=== PATIENT | male | born 1985 | race African-American/Black ===

== ENCOUNTER 2019-05-05 16:06 | Emergency (ER) | payer OTHER ==
[2019-05-05 16:17] VITALS: BP 142/85; PULSE 93; TEMP 97; BMI 34.8
--- NOTE | 2019-05-05 16:28 | PDOC ---
Rapid Medical Evaluation Time Seen by Provider: 05/05/19 16:14 Medical Evaluation: Allergies Allergy/AdvReac Type Severity Reaction Status Date / Time No Known Allergies Allergy Verified 05/05/19 16:14 05/05/19 16:15 I have performed a brief in-person evaluation of this patient. The patient presents with a chief complaint of: L middle finger pain after biting nail too low Pertinent physical exam findings:no paronychia I have ordered the following:nothing The patient will proceed to the ED for further evaluation Discharge Disposition - Diagnosis Pain around nail - Referrals - Patient Instructions - Post Discharge Activity
--- NOTE | 2019-05-05 17:08 | PDOC ---
History of Present Illness - General Chief Complaint: Injury Stated Complaint: Pain Time Seen by Provider: 05/05/19 16:14 History Source: Patient Exam Limitations: No Limitations - History of Present Illness Initial Comments: 05/05/19 17:02 Patient is a 33-year-old male with no past medical history who presents to the ED with complaint of right middle finger swelling and pain. He states that started about 6 days ago. He was seen at [facility] where he was given a topical cream and advised to take Motrin. He was not started on antibiotics and he did not have an I&D. He does admit to biting his fingernails. He states that the finger is very tender to touch but has not been draining any pus. He denies any allergies to medications. Past History - Past Medical History Allergies/Adverse Reactions: Allergies Allergy/AdvReac Type Severity Reaction Status Date / Time No Known Allergies Allergy Verified 05/05/19 16:14 Home Medications: Ambulatory Orders Sulfamethoxazole/Trimethoprim [Bactrim Ds -] 1 tab PO BID #14 tablet 05/05/19 COPD: No - Immunization History Immunization Up to Date: Yes - Psycho Social/Smoking Cessation Hx Smoking History: Current every day smoker Have you smoked in the past 12 months: Yes Number of Cigarettes Smoked Daily: 0 Information on smoking cessation initiated: No Hx Alcohol Use: No Drug/Substance Use Hx: Yes (MARIJUANA) Substance Use Type: Marijuana Review of Systems - Review of Systems Comments:: 05/05/19 17:03 - Review of Systems Able to Perform ROS?: Yes Constitutional: No: Fever, Chills, Loss of Appetite, Night Sweats, Weakness Respiratory: No: Cough, Shortness of Breath, Wheezing, Sputum Production Cardiac (ROS): No: Chest Pain, Chest Tightness, Palpitations, Irregular Heart Beat, Edema ABD/GI: No: Nausea, Vomiting, Abdominal Pain, Diarrhea Musculoskeletal: No: Muscle Pain, Back Pain, Joint Pain, Muscle Weakness, Neck Pain; R middle finger swelling and pain Integumentary: No: Lesions, Rash Neurological: No: Headache, Numbness, Tingling, Weakness, Speech Difficulties *Physical Exam - Vital Signs Last Vital Signs Temp Pulse Resp BP Pulse Ox 97.0 F L 93 H 18 142/85 100 05/05/19 16:15 05/05/19 16:15 05/05/19 16:15 05/05/19 16:15 05/05/19 16:15 - Physical Exam 05/05/19 17:04 - Physical Exam General Appearance: Nourished, Appropriately Dressed, No Distress Neck: Supple, No Lymphadenopathy (R), No Lymphadenopathy (L), No Rigidity, No Decreased range of motion Respiratory/Chest: Lungs Clear, Normal Breath Sounds. No Respiratory Distress, No Accessory Muscle Use Cardiovascular: Regular Rhythm, Regular Rate, S1, S2 Musculoskeletal: Normal Inspection. No Decreased Range of Motion Extremity: Normal Capillary Refill, Normal Inspection Integumentary: Normal Color, Dry. No Rash; Right middle finger with obvious lateral paronychia appreciated. There is no active drainage. There is erythema and tenderness to palpation. No red streaking. No crepitus. Neurologic: computer mechanic II-XII NML intact, Fully Oriented, Alert, Normal Mood/Affect, Normal Response Procedures - Incision and Drainage I&D Site: Right: Paronychia (middle finger, lateral) Blade Size: 11 Attempts: 1 Complications: none Dressing: Yes Progress: 05/05/19 17:06 purulent drainage expressed until only blood expressed Medical Decision Making - Medical Decision Making 05/05/19 17:10 Patient had his right middle finger paronychia I&D in the ED today. He tolerated the procedure well. His wound was cleaned and dressed with sterile gauze. He has been given wound care instructions. A prescription for Bactrim has been sent to the patient's pharmacy. He understands and agrees with this treatment plan and the patient is stable for discharge. Discharge - Discharge Information Problems reviewed: Yes Clinical Impression/Diagnosis: Pain around nail, Paronychia of finger of right hand Condition: Stable Disposition: HOME - Additional Discharge Information Prescriptions: Sulfamethoxazole/Trimethoprim [Bactrim Ds -] 1 tab PO BID #14 tablet - Follow up/Referral [place] [facility] [facility] [place] [facility] [place]] - Patient Discharge Instructions Patient Printed Discharge Instructions: DI for Paronychia Additional Instructions: Keep the right middle finger clean and dry. Soak in warm soaks 2 times daily. Wash with warm water and soap only. Keep covered if away from home but you may keep it uncovered if at home. Take the antibiotics as prescribed and complete the entire course. - Post Discharge Activity
== END 2019-05-05 17:11 | disposition home or self-care (01) ==
LOC: JERFT 16:06
PROC: 0H9QXZZ Drainage of Finger Nail, External Approach (ICD-10-PCS; principal; 2019-05-05)
DX: L03.011 Cellulitis of right finger (principal)
CPT/HCPCS: 99281-25

== ENCOUNTER 2020-08-19 00:56 | Emergency (ER) | payer OTHER ==
[2020-08-19 01:32] VITALS: BP 126/83; PULSE 98; TEMP 98.4; BMI 25.1
[2020-08-19] MEDS ORDERED: ACETAMINOPHEN 500 MG TABLET (FP) PO ONE (01:36)
[2020-08-19] MEDS ORDERED: ACETAMINOPHEN 500 MG TABLET (FP) ONE (01:41)
== END 2020-08-19 04:13 | disposition home or self-care (01) ==
LOC: JER 00:56
DX: S52.541A Smith's fracture of right radius, initial encounter for closed fracture (principal)
CPT/HCPCS: 73110-TC-RT-FY; 73130-TC-RT-FY; 73610-TC-LT-FY; 73630-TC-LT; 99284-25

== ENCOUNTER 2021-01-13 00:52 | Emergency (ER) | payer OTHER ==
[2021-01-13 01:14] VITALS: BP 119/77; PULSE 84; TEMP 97.7; BMI 34.8
== END 2021-01-13 03:43 | disposition home or self-care (01) ==
LOC: JER 00:52
DX: R07.9 Chest pain, unspecified (principal)
CPT/HCPCS: 71046-TC-FY; 93005; 93010; 99284-25

== ENCOUNTER 2021-06-09 20:56 | Emergency (ER) | payer OTHER ==
[2021-06-09 21:04] VITALS: BP 119/79; PULSE 90; TEMP 98.2; BMI 34.4
== END 2021-06-09 23:11 | disposition home or self-care (01) ==
LOC: JER 20:56 → JERFT 20:56
DX: S62.637A Displaced fracture of distal phalanx of left little finger, initial encounter for closed fracture (principal); V28.0XXA Motorcycle driver injured in noncollision transport accident in nontraffic accident, initial encounter
CPT/HCPCS: 73130-TC-LT-FY; 73140-TC-LT-FY; 99284-25